=== PATIENT | female | born 1930 | race African-American/Black ===

== ENCOUNTER → 2017-01-28 | Outpatient (CLI) | payer MEDICARE, MEDICAID ==
--- NOTE | 2017-01-28 13:00 | RADIOLOGY REPORT (SQ) ---
EXAM DESCRIPTION: HIP RIGHT AP/LATERAL COMPLETED DATE/TIME: 01/28/2017 12:49 pm REASON FOR STUDY: RT HIP PAIN M25.551 PAIN IN RIGHT HIP COMPARISON: Abdominal x-ray dated 06/29/2012. NUMBER OF VIEWS: Two views. TECHNIQUE: AP pelvis and additional frog-leg view of the right hip. LIMITATIONS: None. FINDINGS: MINERALIZATION: Normal. RIGHT HIP: No fracture or dislocation. No worrisome bone lesions. LEFT HIP: No fracture or dislocation. Stable chronic appearance with coarsened trabecular pattern in the femoral head and neck. PUBIS AND ISCHIUM: No fracture. PELVIS: No fracture. SACRUM: No fracture or dislocation. No worrisome bone lesions. Sclerosis in the inferior right sacro iliac joint. LOWER LUMBAR SPINE: No fracture or dislocation. No worrisome bone lesions. Degenerative disc disease . SOFT TISSUES: No findings. OTHER: No other significant finding. IMPRESSION: STABLE CHRONIC FINDINGS INCLUDING COARSENED TRABECULAR PATTERN OF THE LEFT FEMORAL HEAD AND NECK. NO ACUTE FINDINGS. TECHNICAL DOCUMENTATION: JOB ID: [id number] [employer]- All Rights Reserved
== END ==
LOC: OD 12:18
PROVIDERS: ATTEND Family Medicine
DX: M25.551 Pain in right hip (principal)

== ENCOUNTER 2018-05-25 17:47 | Emergency (ER) | payer MEDICARE, MEDICAID ==
[2018-05-25] MEDS ORDERED: IPRATROPIUM/ALBUTEROL 0.5-2.5 MG/3 ML AMPUL NEB ONE (18:10)
--- NOTE | 2018-05-25 18:10 | ER Document Report ---
ED General - General Chief Complaint: Shortness Of Breath Stated Complaint: SHORT OF BREATH Time Seen by Provider: 05/25/18 18:03 Mode of Arrival: Ambulatory Information source: Patient, Relative TRAVEL OUTSIDE OF THE [place] IN LAST 30 DAYS: No - HPI Patient complains to provider of: Shortness of breath Onset: Other - 3-4 days Onset/Duration: Gradual, Persistent, Worse Quality of pain: Achy Severity: Moderate Pain Level: 3 Associated symptoms: Chest pain, Shortness of breath Exacerbated by: Denies Relieved by: Denies Similar symptoms previously: No Recently seen / treated by doctor: No Notes: Patient is an 87-year-old female brought to the emergency room by daughter for complaints of chest pain with shortness of breath this been going on for the past 3 days but worsened today, patient also appears confused that she is normally alert and oriented at home and can verbalize needs, however today she is unable to do so and appears confused, she is slightly tachycardic on arrival with a temperature of 99.1, however daughter denies any recent illness such as cough, cold or congestion, no nausea, vomiting or diarrhea, and patient did have an episode of incontinence today but has had no concerns with dysuria - Related Data Allergies/Adverse Reactions: pork derived (porcine) [Pork derived (porcine)] Allergy (Intermediate, Verified 03/31/12 18:13) blisters in mouth No Known Drug Allergies Allergy (Verified 03/31/12 18:05) Past Medical History - General Information source: Relative - Social History Smoking Status: Never Smoker Family History: Reviewed & Not Pertinent - Past Medical History Cardiac Medical History: Reports: Hx Congestive Heart Failure, Hx Coronary Artery Disease, Hx Hypertension Pulmonary Medical History: Reports: Hx Asthma, Hx Bronchitis, Hx Pneumonia Denies: Hx COPD, Hx Tuberculosis Neurological Medical History: Denies: Hx Cerebrovascular Accident, Hx Seizures Endocrine Medical History: Reports: Hx Diabetes Mellitus Type 2 Musculoskeletal Medical History: Reports Hx Arthritis Past Surgical History: Denies: Hx Hysterectomy, Hx Pacemaker - Immunizations Hx Diphtheria, Pertussis, Tetanus Vaccination: No Hx Pneumococcal Vaccination: 03/30/11 Review of Systems - Review of Systems Constitutional: No symptoms reported EENT: No symptoms reported Cardiovascular: See HPI, Chest pain, Edema Respiratory: See HPI, Short of breath Gastrointestinal: No symptoms reported Genitourinary: Incontinence Female Genitourinary: No symptoms reported Musculoskeletal: No symptoms reported Skin: No symptoms reported Hematologic/Lymphatic: No symptoms reported Neurological/Psychological: Confusion -: Yes All other systems reviewed and negative Physical Exam - Vital signs Vitals: Temp Pulse Resp BP Pulse Ox 99.1 F 116 H 24 H 195/95 H 98 05/25/18 17:58 05/25/18 17:58 05/25/18 17:58 05/25/18 17:58 05/25/18 17:58 Interpretation: Hypertensive, Tachycardic - General General appearance: Alert In distress: Mild - HEENT Head: Normocephalic, Atraumatic Eyes: Normal Conjunctiva: Normal Extraocular movements intact: Yes Eyelashes: Normal Pupils: PERRL Pharynx: Normal - Respiratory Respiratory status: Tachypnea Chest status: Nontender Breath sounds: Other - Audible upper airway wheeze Chest palpation: Normal - Cardiovascular Rhythm: Regular, Tachycardia Heart sounds: Normal auscultation Murmur: No - Abdominal Inspection: Normal Distension: No distension Bowel sounds: Normal Tenderness: Nontender Organomegaly: No organomegaly - Back Back: Normal, Nontender - Extremities General upper extremity: Normal inspection, Nontender, Normal color, Normal ROM , Normal temperature General lower extremity: Nontender, Edema - Trace lower extremity edema, Normal color, Normal ROM, Normal temperature. No: Jerome's sign - Neurological Cognition: Confused Orientation: Disoriented to events Alex Coma Scale Eye Opening: Spontaneous [place] Coma Scale Verbal: Confused Alex Coma Scale Motor: Obeys Commands [place] Coma Scale Total: 14 Motor strength normal: LUE, RUE, LLE, RLE Sensory: Normal - Skin Skin Temperature: Warm Skin Moisture: Dry Skin Color: Normal Course - Re-evaluation Re-evalutation: 05/25/18 19:31 Patient was discussed with Dr. Shannon, the hospitalist who recommends consulting cardiology regarding patient's positive troponin Patient was discussed with Dr. Stokes who recommends obtaining a CTA to rule out PE 05/25/18 21:09 CTA results discussed with Dr. Stokes, cardiology who recommends transfer out secondary to heart failure with positive troponin requiring further evaluation by interventional cardiology with likely cardiac catheterization 05/25/18 21:12 A call was placed to [facility], spoke with Albino who will call back with hospitalist 05/25/18 21:[address] Lott at [facility], hospitalist who accepts for transfer but reports that he may not have a bed for patient until sometime tomorrow 05/25/18 21:21 Call was placed to [facility], patient was discussed with the transfer center 05/25/18 21:41 Patient was discussed with cardiology LEONOR Gibbs at [facility] who accepts for transfer, however transfer center reports that they do not currently have any beds and it may be approximately 24 hours before they do have an available bed 05/25/18 21:55 A call was placed to [facility], spoke with transfer center, requested callback regarding patient's positive troponin with likely NSTEMI 05/25/18 22:05 Patient was discussed with cardiology teacher, Dr. Ashford, who accepts patient under the service of attending fleet sales manager Dr. Mendez, however the transfer center states that they will not have a bed for 24-48 hours 05/25/18 23:25 ALS crew in the department to transport patient to [facility] where they have appropriated a bed assignment for her, patient is resting comfortably with stable vital signs, blood pressure is only improved, patient is stable for transfer to tertiary care center for further evaluation and treatment - Vital Signs Vital signs: Temp Pulse Resp BP Pulse Ox 99.1 F 116 H 17 146/66 H 99 05/25/18 17:58 05/25/18 17:58 05/25/18 23:22 05/25/18 23:22 05/25/18 23:22 - Laboratory Result Diagrams: 05/25/18 18:14 05/25/18 18:14 Laboratory results interpreted by me: 05/25/18 05/25/18 05/25/18 18:14 18:14 18:14 RBC 3.35 L Hgb 11.2 L Hct 33.3 L MCV 99 H Sodium 135.7 L Chloride 94 L Glucose 243 H AST 38 H Creatine Kinase 356 H NT-Pro-B Natriuret Pep 1170 H - Diagnostic Test Radiology reviewed: Image reviewed, Reports reviewed - EKG Interpretation by Me EKG shows normal: Sinus rhythm Rate: Tachycardia Voltage: Consistant with LVH Critical Care Note - Critical Care Note Total time excluding time spent on procedures (mins): 90 Comments: Patient with elevated troponin consistent with an STEMI, hypertensive emergency with consistently elevated blood pressure requiring Cardene drip and transfer to tertiary care center Discharge - Discharge Clinical Impression: NSTEMI (non-ST elevated myocardial infarction) Condition: Stable Disposition: [facility] Referrals: SAVANNA LAUREANO MD [Primary Care Provider] - Follow up as needed
[2018-05-25 18:24] LABS: ABSOLUTE BASOPHILS # (AUTO) 0.1 10^3/uL (0.0-0.2); ABSOLUTE LYMPHOCYTES (AUTO) 1.5 10^3/uL (0.5-4.7); ABSOLUTE NEUT (AUTO) 7.1 10^3/uL (1.7-8.2); EOSINOPHILS % (AUTO) 0.4 % (0-6); HEMATOCRIT 33.3 % (36.0-47.0); HEMOGLOBIN 11.2 g/dL (12.0-15.5); LYMPHOCYTES % (AUTO) 15.8 % (13-45); MEAN CORPUSCULAR HEMOGLOBIN 33.3 pg (27.0-33.4); MEAN CORPUSCULAR HGB CONC 33.5 g/dL (32.0-36.0); MEAN CORPUSCULAR VOLUME 99 fl (80-97); MONOCYTES % (AUTO) 10.6 % (3-13); PLATELET COUNT 247 10^3/uL (150-450); RED BLOOD COUNT 3.35 10^6/uL (3.72-5.28); RED CELL DISTRIBUTION WIDTH 12.2 % (11.5-14.0); SEGMENTED NEUTROPHILS % (AUTO) 72.2 % (42-78); TOTAL CELLS COUNTED % (AUTO) 100 %; WHITE BLOOD COUNT 9.8 10^3/uL (4.0-10.5)
[2018-05-25 18:52] LABS: ALANINE AMINOTRANSFERASE 22 U/L (9-52); ALBUMIN 4.4 g/dL (3.5-5.0); ALKALINE PHOSPHATASE 108 U/L (38-126); ANION GAP 15 (5-19); ASPARTATE AMINO TRANSFERASE 38 U/L (14-36); BILIRUBIN,DIRECT 0.1 mg/dL (0.0-0.4); BILIRUBIN,TOTAL 1.1 mg/dL (0.2-1.3); BLOOD UREA NITROGEN 14 mg/dL (7-20); CALCIUM 9.8 mg/dL (8.4-10.2); CARBON DIOXIDE 27 mmol/L (22-30); CHLORIDE 94 mmol/L (98-107); CREATINE KINASE 356 U/L (30-135); GLUCOSE 243 mg/dL (75-110); POTASSIUM 4.8 mmol/L (3.6-5.0); SODIUM 135.7 mmol/L (137-145); TOTAL PROTEIN 7.8 g/dL (6.3-8.2)
[2018-05-25 19:02] LABS: CREATINE KINASE MB 3.14 ng/mL (<4.55)
[2018-05-25 19:05] LABS: TROPONIN I 1.81 ng/mL
--- NOTE | 2018-05-25 19:05 | RADIOLOGY REPORT (SQ) ---
EXAM DESCRIPTION: CHEST SINGLE VIEW COMPLETED DATE/TIME: 05/25/2018 6:20 pm REASON FOR STUDY: bed 3 db COMPARISON: 06/29/2012. NUMBER OF VIEWS: One view. TECHNIQUE: Single frontal radiographic view of the chest acquired. LIMITATIONS: None. FINDINGS: LUNGS AND PLEURA: No opacities, masses or pneumothorax. No pleural effusion. MEDIASTINUM AND HILAR STRUCTURES: No masses or contour abnormality. HEART AND VASCULATURE: Cardiac enlargement. Vascular congestion. BONES: No acute findings. Degenerative changes in the shoulders. HARDWARE: None in the chest. OTHER: No other significant finding. IMPRESSION: CARDIAC ENLARGEMENT. VASCULAR CONGESTION. TECHNICAL DOCUMENTATION: JOB ID: [id number] [employer]- All Rights Reserved Reading location - IP/workstation name: [email or web address]
[2018-05-25] MEDS ORDERED: METOPROLOL TARTRATE PF/INJ 5 MG/5 ML SDV IV ONE ×2 (19:25→21:22)
--- NOTE | 2018-05-25 19:42 | EKG REPORT ---
SEVERITY:- ABNORMAL ECG - SINUS TACHYCARDIA VENTRICULAR PREMATURE COMPLEX BIATRIAL ABNORMALITIES LEFT VENTRICULAR HYPERTROPHY : Confirmed by: Josh Fuentes MD 25-May-2018 19:42:21
[2018-05-25] MEDS ORDERED: MORPHINE SULFATE 10 MG/ML INJ IV ONE (20:38)
[2018-05-25] MEDS ORDERED: ASPIRIN 81 MG TABLET, CHEWABLE PO ONE (20:38)
--- NOTE | 2018-05-25 20:59 | RADIOLOGY REPORT (SQ) ---
EXAM DESCRIPTION: CTA CHEST COMPLETED DATE/TIME: 05/25/2018 8:41 pm REASON FOR STUDY: SOB COMPARISON: None. TECHNIQUE: CT scan of the chest performed using helical scanning technique with dynamic intravenous contrast injection. Images reviewed with lung, soft tissue and bone windows. Reconstructed coronal and sagittal MPR images reviewed. Additional 3 dimensional post-processing performed to develop Maximal Intensity Projection images (CT P). All images stored on PACS. All CT scanners at this facility use dose modulation, iterative reconstruction, and/or weight based d osing when appropriate to reduce radiation dose to as low as reasonably achievable (ALARA). [facility]: Dose Right [facility]: CareDose [facility]: Dose Right [facility]: Teradose 4D [facility]: [employer] CONTRAST TYPE AND DOSE: contrast/concentration: Isovue 350.00 mg/ml; Total Contrast Delivered: 82.0 ml; Total Saline Delivered: 122.0 ml Contrast bolus optimized for the pulmonary arteries. Not diagnostic for the aorta. RENAL FUNCTION: BUN 14 creatinine 0.8 RADIATION DOSE: CT Rad equipment meets quality standard of care and radiation dose reduction techniq ues were employed. CTDIvol: 28.9 - 46.9 mGy. DLP: 968 mGy-cm. . LIMITATIONS: None. FINDINGS: LUNGS AND PLEURA: Pleural/parenchymal scarring in the apices. Pulmonary vascular congesti on. No selena pulmonary edema. AORTA AND GREAT VESSELS: No aneurysm. Contrast bolus not optimized for the aorta. HEART: Cardiomegaly. No pericardial effusion. Moderate to marked coronary artery calcifications. PULMONARY ARTERIES: No emboli visualized in the main pulmonary arteries or the segmental branches. HILAR AND MEDIASTINAL STRUCTURES: No identified masses or abnormal nodes. HARDWARE: None in the chest. UPPER ABDOMEN: Intrarenal calculi. THYROID AND OTHER SOFT TISSUES: No masses. No adenopathy. BONES: No acute or significant finding. 3D MIPS: Confirm above findings. OTHER: No other significant finding. IMPRESSION: 1. There is no evidence of pulmonary embolus. 2. Cardiomegaly with pulmonary vascular congestion but no selena pulmonary edema. 3. Coronary atherosclerosis. 4. Intrarenal calculi. COMMENT: Quality ID # [id number]: Final reports with documentation of one or more dose reduction techniques (e.g., Automated exposure control, adjustment of the mA and/or kV according to patient size, use of iterative reconstruction technique) TECHNICAL DOCUMENTATION: JOB ID: [id number] [employer]- All Rights Reserved Reading location - IP/workstation name: [email or web address]
[2018-05-25] MEDS ORDERED: NICARDIPINE HCL RTU, ISO-OS 20 MG/200 ML RTUINJ IV PRN (22:07)
[2018-05-25] MEDS ORDERED: LORAZEPAM INJ 2 MG/1 ML VIAL IV ONE (22:13)
[2018-05-25 23:26] VITALS: BP 146/66
== END 2018-05-25 23:34 | disposition short-term general hospital (02) ==
LOC: ER 17:47
DX: I21.4 Non-ST elevation (NSTEMI) myocardial infarction (principal); I16.1 Hypertensive emergency; I10 Essential (primary) hypertension; R41.0 Disorientation, unspecified; R06.02 Shortness of breath; R07.9 Chest pain, unspecified; R00.0 Tachycardia, unspecified; R60.9 Edema, unspecified; I25.10 Atherosclerotic heart disease of native coronary artery without angina pectoris; J45.909 Unspecified asthma, uncomplicated; E11.9 Type 2 diabetes mellitus without complications; R32 Unspecified urinary incontinence; Z91.018 Allergy to other foods
CPT/HCPCS: 93005; 94640; 99291; 99292; 96375; 96365; 36415; 87040; 82553; 82550; 85025; 80053; 84484; 83605; 83880; 71045; 71275; 93010; A9270 ×2; J3490 ×2; J2270; J2060; J7620

== ENCOUNTER 2018-06-22 02:34 | Emergency (ER) | payer MEDICARE, MEDICAID ==
[2018-06-22] MEDS ORDERED: METHYLPREDNISOLONE INJ 125 MG/2 ML SDV IV ONE (02:47)
[2018-06-22] MEDS ORDERED: ASPIRIN 81 MG TABLET, CHEWABLE PO ONE (02:47)
[2018-06-22] MEDS ORDERED: IPRATROPIUM/ALBUTEROL 0.5-2.5 MG/3 ML AMPUL NEB ONE (02:47)
[2018-06-22 03:17] LABS: ABSOLUTE EOSINOPHILS # (AUTO) 0.1 10^3/uL (0.0-0.6); ABSOLUTE LYMPHOCYTES (AUTO) 1.2 10^3/uL (0.5-4.7); ABSOLUTE MONOCYTES (AUTO) 0.7 10^3/uL (0.1-1.4); BASOPHILS % (AUTO) 0.5 % (0-2); EOSINOPHILS % (AUTO) 2.1 % (0-6); HEMATOCRIT 31.4 % (36.0-47.0); HEMOGLOBIN 10.3 g/dL (12.0-15.5); LYMPHOCYTES % (AUTO) 20.2 % (13-45); MEAN CORPUSCULAR HEMOGLOBIN 33.1 pg (27.0-33.4); MEAN CORPUSCULAR HGB CONC 32.6 g/dL (32.0-36.0); MEAN CORPUSCULAR VOLUME 102 fl (80-97); MONOCYTES % (AUTO) 11.7 % (3-13); PLATELET COUNT 238 10^3/uL (150-450); RED BLOOD COUNT 3.09 10^6/uL (3.72-5.28); RED CELL DISTRIBUTION WIDTH 12.9 % (11.5-14.0); SEGMENTED NEUTROPHILS % (AUTO) 65.5 % (42-78); TOTAL CELLS COUNTED % (AUTO) 100 %; WHITE BLOOD COUNT 6.2 10^3/uL (4.0-10.5)
[2018-06-22 03:36] LABS: ALANINE AMINOTRANSFERASE 25 U/L (9-52); ALBUMIN 3.8 g/dL (3.5-5.0); ALKALINE PHOSPHATASE 86 U/L (38-126); ANION GAP 7 (5-19); ASPARTATE AMINO TRANSFERASE 31 U/L (14-36); BILIRUBIN,DIRECT 0.3 mg/dL (0.0-0.4); BILIRUBIN,TOTAL 1.1 mg/dL (0.2-1.3); BLOOD UREA NITROGEN 16 mg/dL (7-20); CALCIUM 9.1 mg/dL (8.4-10.2); CARBON DIOXIDE 30 mmol/L (22-30); CHLORIDE 102 mmol/L (98-107); CREATINE KINASE 211 U/L (30-135); GLUCOSE 127 mg/dL (75-110); POTASSIUM 4.1 mmol/L (3.6-5.0); SODIUM 138.9 mmol/L (137-145); TOTAL PROTEIN 6.9 g/dL (6.3-8.2)
[2018-06-22 03:48] LABS: CREATINE KINASE MB 1.26 ng/mL (<4.55)
[2018-06-22 03:51] LABS: TROPONIN I 0.043 ng/mL
--- NOTE | 2018-06-22 04:16 | ER Document Report ---
ED General - General Chief Complaint: Fall Stated Complaint: FALL Time Seen by Provider: 06/22/18 02:48 Notes: Patient is an 87-year-old female presents to the emergency department after mechanical fall. Patient is a patient of [facility]. States she got up out of bed to use the restroom and tripped and fell. Patient denies feeling dizzy, lightheaded, weak, chest pain, shortness of breath. Patient is complaining of pain in bilateral lower extremities and the left side of her head. Patient is denying any respiratory distress but is found to be tachypneic with tracheal tugging at this time. 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 Once patient's daughter is in the room she is stating that she does not have dementia, she has no confusion ever. Patient continues to be conscious alert and oriented x4 GCS of 15. Past medical history: Hypertension, diabetes, hyperlipidemia, congestive heart failure, COPD, asthma Medications: Amlodipine, clonidine, MiraLAX, Lasix, Lidoderm, Lipitor, melatonin, Protonix, Singulair, metoprolol, albuterol, Cozaar, glipizide, hydralazine clonazepam Allergies: Pork, shellfish TRAVEL OUTSIDE OF THE [place] IN LAST 30 DAYS: No - Related Data Allergies/Adverse Reactions: pork derived (porcine) [Pork derived (porcine)] Allergy (Intermediate, Verified 06/22/18 04:00) blisters in mouth No Known Drug Allergies Allergy (Verified 06/22/18 04:00) Past Medical History - Social History Smoking Status: Unknown if Ever Smoked Family History: Reviewed & Not Pertinent - Past Medical History Cardiac Medical History: Reports: Hx Congestive Heart Failure, Hx Coronary Artery Disease, Hx Hypertension Pulmonary Medical History: Reports: Hx Asthma, Hx Bronchitis, Hx Pneumonia Denies: Hx COPD, Hx Tuberculosis Neurological Medical History: Denies: Hx Cerebrovascular Accident, Hx Seizures Endocrine Medical History: Reports: Hx Diabetes Mellitus Type 2 Musculoskeletal Medical History: Reports Hx Arthritis Past Surgical History: Denies: Hx Hysterectomy, Hx Pacemaker - Immunizations Hx Diphtheria, Pertussis, Tetanus Vaccination: No Hx Pneumococcal Vaccination: 03/30/11 Physical Exam - Vital signs Vitals: Temp Pulse Resp Pulse Ox 98 F 104 H 24 H 97 06/22/18 02:45 06/22/18 02:45 06/22/18 02:45 06/22/18 02:45 Course - Re-evaluation Re-evalutation: 06/22/18 04:44 Patient's daughter is currently in the emergency room with her at bedside. After breathing treatments patient is no longer tachypneic and does appear to be doing a lot better. She no longer appears to be in respiratory distress. Daughter states when the patient gets anxious she tends to breathe very fast and gets herself worked up. Daughter states patient is currently at her baseline, she states her breathing is somewhat labored at times but is not labored currently. CT imaging of patient's head and neck revealed no signs of fractures, no intracranial bleeding at this time. 06/22/18 04:46 Patient's labs revealed no signs of leukocytosis, no signs of electrolyte abnormalities, patient's troponin is undetermined at this time. Denies chest pains or pressure. Patient does not have a fever and is not complaining of dysuria, I do not think urine is needed at this time. Daughter continues at patient bedside stating she is "breathing totally normal now." 06/22/18 05:20 X-rays of patient's bilateral lower extremities reveal no signs of fractures. Patient's daughter who is at bedside continues to state patient's respiratory effort is at her baseline. Daughter states the patient was just talking about their plans for [facility] prior to my arrival to the room. Daughter feels very comfortable that the patient is at baseline and she wishes for her to be discharged back to the nursing facility. Patient is only complaining of some generalized head pain at this time. Will treat her pain prior to her discharge from the emergency room. Patient is currently in no respiratory distress with a respiratory rate of 19, oxygen saturation 96%, heart rate 99, BP 156/98. - Vital Signs Vital signs: Temp Pulse Resp BP Pulse Ox 98 F 104 H 22 H 179/102 H 94 06/22/18 02:45 06/22/18 02:45 06/22/18 07:47 06/22/18 07:47 06/22/18 07:47 - Laboratory Result Diagrams: 06/22/18 03:03 06/22/18 03:03 Laboratory results interpreted by me: 06/22/18 06/22/18 03:03 03:03 RBC 3.09 L Hgb 10.3 L Hct 31.4 L MCV 102 H Est GFR (Non-Af Amer) 53 L Glucose 127 H Creatine Kinase 211 H Discharge - Discharge Clinical Impression: Fall, Head injury, Lower extremity injury, Bronchospasm Condition: Stable Disposition: HOME-ASSISTED LIVING Instructions: Bronchospasm ([facility]), Head Injury Precautions ([facility]), Leg Pain Nonspecific ([facility]) Additional Instructions: As we discussed your mother has been seen and treated in the emergency department after her mechanical fall. Her CT scans reveal no signs of fracture or intracranial bleeding. Her lab work is otherwise unremarkable. Her care will be continued at [facility]. Please have the patient return to the emergency room for any other concerning symptoms. Referrals: BRIANNA ST DO [Primary Care Provider] - Follow up as needed
--- NOTE | 2018-06-22 04:30 | RADIOLOGY REPORT (SQ) ---
EXAM DESCRIPTION: CT CERVICAL SPINE WITHOUT IV CONTRAST COMPLETED DATE/TME: 06/22/2018 02:51 CLINICAL HISTORY: 87 years Female, fall Comparison: None. Technique: No contrast. Coronal and sagittal reformat. This exam was performed according to our departmental dose-optimization program, which includes automated exposure control, adjustment of the mA and/or kV according to patient size and/or use of iterative reconstruction technique.[facility]: Dose Right [facility]: CareDose [facility]: Dose Right [facility]: Teradose 4D [facility]: [employer] LIMITATIONS: None Findings: Normal alignment. Normal curvature. No fracture. Normal vertebral heights. Mild disc desiccation between the C4 and C6 levels. Small scar-fibrosis of bilateral lung apices. Partially imaged nuchal soft tissues, inferior cranium, and upper thorax appear otherwise grossly intact. IMPRESSION: No acute findings.
--- NOTE | 2018-06-22 04:33 | RADIOLOGY REPORT (SQ) ---
CLINICAL HISTORY: fall COMPARISON: None. TECHNIQUE: CT HEAD WITHOUT IV CONTRAST on 06/22/2018 2:51 AM WORKING FOREM[employer] This exam was performed according to our departmental dose-optimization program, which includes automated exposure control, adjustment of the mA and/or kV according to patient size and/or use of iterative reconstruction technique. FINDINGS: There is no acute hemorrhage, mass effect or midline shift. Hooper-white differentiation is preserved. There is no hydrocephalus. There is no significant volume loss for age. There are mild patchy hypodensities within the periventricular and subcortical white matter, consistent with microangiopathic ischemic changes. There is a left parietal scalp contusion. The calvarium is intact. Orbits and globes are unremarkable. The paranasal sinuses are clear. Mastoid air cells are clear. IMPRESSION: No acute intracranial findings.
--- NOTE | 2018-06-22 04:53 | RADIOLOGY REPORT (SQ) ---
Chest single view on 06/22/2018 at 4:40 AM CLINICAL INDICATION: Shortness of breath COMPARISON: 05/25/2018 FINDINGS: Cardiomegaly is noted. Mild vascular congestion is noted. The lungs are otherwise clear. Moderate to severe degenerative changes are noted within both shoulders. IMPRESSION: Cardiomegaly with mild vascular congestion.
--- NOTE | 2018-06-22 05:03 | RADIOLOGY REPORT (SQ) ---
EXAM DESCRIPTION: XR FEMUR BILATERAL COMPLETED DATE/TME: 06/22/2018 02:51 CLINICAL HISTORY: 87 years Female, fall pain COMPARISON: None. Findings: Atherosclerosis. Mild osteoarthritis. Bone demineralization. Bones, joints, and soft tissues of the bilateral XR FEMUR BILATERAL appear otherwise intact. IMPRESSION: No acute findings.
--- NOTE | 2018-06-22 05:04 | RADIOLOGY REPORT (SQ) ---
EXAM DESCRIPTION: XR TIBIA FIBULA 2 VIEWS BILATERAL COMPLETED DATE/TME: 06/22/2018 02:51 CLINICAL HISTORY: 87 years Female, fall pain COMPARISON: None. Findings: Atherosclerotic vascular disease. Mild-moderate osteoarthritis. Bone demineralization. Bones, joints, and soft tissues of the bilateral XR TIBIA FIBULA 2 VIEWS BILATERAL appear otherwise intact. IMPRESSION: No acute findings.
--- NOTE | 2018-06-22 05:06 | RADIOLOGY REPORT (SQ) ---
EXAM DESCRIPTION: XR PELVIS 1-2 VIEWS COMPLETED DATE/TME: 06/22/2018 02:51 CLINICAL HISTORY: 87 years Female, fall pain COMPARISON: None. Findings: Atherosclerotic vascular disease. Degenerative disc disease. Bone demineralization. . Bones, joints, and soft tissues of the XR PELVIS 1 VIEWS appear otherwise intact. IMPRESSION: No acute findings.
[2018-06-22] MEDS ORDERED: HYDROCODONE/ACETAMINOPHEN 7.5-325 MG TABLET PO ONE (05:36)
--- NOTE | 2018-06-22 06:12 | EKG REPORT ---
SEVERITY:- ABNORMAL ECG - SINUS RHYTHM VENTRICULAR PREMATURE COMPLEX LEFT VENTRICULAR HYPERTROPHY BORDERLINE PROLONGED QT INTERVAL : Confirmed by: Josh Fuentes MD 22-Jun-2018 06:11:28
[2018-06-22 07:48] VITALS: BP 179/102
== END 2018-06-22 07:53 | disposition home health service (06) ==
LOC: ER 02:34
DX: S09.90XA Unspecified injury of head, initial encounter (principal); S89.82XA Other specified injuries of left lower leg, initial encounter; S89.81XA Other specified injuries of right lower leg, initial encounter; W18.30XA Fall on same level, unspecified, initial encounter; Y92.129 Unspecified place in nursing home as the place of occurrence of the external cause; J98.01 Acute bronchospasm; M16.0 Bilateral primary osteoarthritis of hip; I11.0 Hypertensive heart disease with heart failure; I50.9 Heart failure, unspecified; I25.10 Atherosclerotic heart disease of native coronary artery without angina pectoris; E78.5 Hyperlipidemia, unspecified; E11.9 Type 2 diabetes mellitus without complications; J44.9 Chronic obstructive pulmonary disease, unspecified; Z91.013 Allergy to seafood; Z91.018 Allergy to other foods
CPT/HCPCS: 93005; 94640; 99284; 96374; 36415; 82553; 82550; 85025; 80053; 84484; 83880; 71045; 72170; 73552; 73590; 70450; 72125; 93010; J2930; A9270 ×2; J7620